=== PATIENT | male | born 1995 | race Hispanic/Latino ===

== ENCOUNTER 2017-10-20 12:57 | Emergency (ER) | payer SELFPAY ==
[2017-10-20] MEDS ORDERED: predniSONE 20 MG TAB ONE (13:57)
[2017-10-20] MEDS ORDERED: Albuterol Sulfate 2.5 mg/0.5 ml Neb ONE ×2 (14:34→14:35)
== END 2017-10-20 13:53 | disposition home or self-care (01) ==
LOC: ERS 12:57
DX: J45.901 Unspecified asthma with (acute) exacerbation (principal); Z79.899 Other long term (current) drug therapy
CPT/HCPCS: J7506; J7611; J7620

== ENCOUNTER 2020-07-08 17:52 | Emergency (ER) | payer OTHER ==
[2020-07-08] MEDS ORDERED: Acetaminophen 500 MG TAB ONE (18:16)
[2020-07-08] MEDS ORDERED: Ibuprofen 800 MG TAB ONE (18:16)
== END 2020-07-08 18:52 | disposition home or self-care (01) ==
LOC: ERS 17:52
DX: S01.01XA Laceration without foreign body of scalp, initial encounter (principal); J45.909 Unspecified asthma, uncomplicated; Z79.51 Long term (current) use of inhaled steroids; V89.2XXA Person injured in unspecified motor-vehicle accident, traffic, initial encounter
CPT/HCPCS: 12001; 70450; G0390